=== PATIENT | male | born 1955 | race Caucasian/White ===

== ENCOUNTER 2021-02-15 09:37 | Outpatient (RCR) | payer MEDICARE, OTHER, SELFPAY | END 2021-02-24 15:24 | disposition home or self-care (01) | LOC: HO.WCC 09:37 | PROVIDERS: Referring Provider Podiatrist Foot & Ankle Surgery; Visit Provider Physician Assistant | DX: S91.111A Laceration without foreign body of right great toe without damage to nail, initial encounter (principal); C90.00 Multiple myeloma not having achieved remission; G13.0 Paraneoplastic neuromyopathy and neuropathy; E11.9 Type 2 diabetes mellitus without complications; I48.91 Unspecified atrial fibrillation; R60.0 Localized edema; M21.372 Foot drop, left foot; M21.371 Foot drop, right foot; Z79.01 Long term (current) use of anticoagulants; Z92.21 Personal history of antineoplastic chemotherapy | CPT/HCPCS: 11044; 87071; 87205; 88304; 88305; 88311 ==